=== PATIENT | male | born 1995 | race Caucasian/White ===

== ENCOUNTER 2016-06-09 19:52 | Emergency (ER) | payer BC, OTHER ==
[~2016-06-09] VITALS: Ht 170.2 cm; Wt 68.1 kg
[~2016-06-09 19:52] MED LIST: OXYC-57 PO; TAMS0.4C38 PO
[2016-06-09 20:03] VITALS: TEMP 36.9; Ht 170.2 cm; Wt 68.1 kg
[2016-06-09] MEDS ORDERED: KETOROLAC TROMETHAMINE 30 MG/ML VIAL IV STA (20:31)
[2016-06-09] MEDS ORDERED: CLINDAMYCIN 600 MG/54 ML D5W IV ONE (20:45)
[2016-06-09 21:19] LABS: BASO % 0.2 %; BASO ABS # 0.02 K/uL (0-0.2); COMPLETE YES; HEMATOCRIT 40.5 % (42-52); IG% 0.2 %; LYMPH % 22.7 %; LYMPH ABS # 2.49 K/uL (1.2-3.4); MEAN CELL VOLUME 89.4 fL (80-100); MEAN CORPUSCULAR HGB CONC 35.8 g/dl (32-36); MEAN PLATELET VOLUME 10.3 fL (7.4-10.4); MONO % 10.2 %; NEUT % 65.7 %; PLATELET COUNT 204 K/uL (130-400); RED BLOOD COUNT 4.53 M/uL (4.7-6.1); WHITE BLOOD COUNT 10.95 K/uL (4.8-10.8)
[2016-06-09] MEDS ORDERED: CLIN300C2 PO (21:34)
[2016-06-09] MEDS ORDERED: HYDR-5688 PO (21:34)
--- NOTE | 2016-06-09 21:35 | EMERGENCY ROOM VISIT NOTE ---
History First contact with patient: 20:21 Chief Complaint: DENTAL PAIN Stated Complaint: TOOTHPAIN,HEADACHE History of Present Illness The patient is a 20 year old male who presents to the Emergency Room with complaints of dental pain for the last 2 days. The patient states that he had a root canal done 6 months ago in the left lower molar and 2 days ago the filling fell out. He immediately started noticed some pain and swelling in the area. He did not try and contact his dentist until this evening about his current symptoms. He states he hasn't appointment next week. The patient denies any fever or neck pain. Review of Systems 10 system review was performed and was negative unless stated otherwise history of present illness. Past Medical/Surgical History Medical Problems: (1) History of renal calculi Surgical Problems: (1) History of arthroscopy of left knee (2) History of tympanostomy (3) Status post tonsillectomy and adenoidectomy Family History FHx: heart disease Hypertension Kidney stones Social History Smoking Status: Never Smoker Alcohol Use: none Drug Use: none Marital Status: single Occupation Status: employed, student Current/Historical Medications No Active Prescriptions or Reported Meds Allergies Coded Allergies: No Known Allergies (Unverified , 04/24/14) Physical Exam Vital Signs Date Time Temp Pulse Resp B/P Pulse Ox O2 Delivery O2 Flow Rate FiO2 06/09/16 20:03 36.9 70 18 124/73 99 Room Air Physical Exam GENERAL: Well-developed well-nourished 20-year-old white male appears in no acute distress. MENTAL Status: Alert and oriented 3 MOUTH: Left lower molar with a filling missing. There is also surrounding edema in the gingiva but no central fluctuance is noted. FACE: There is a small palpable lump on the left mandible at the region of the left lower molar. No erythema is noted. NECK: Supple, no lymphadenopathy noted. No carotid bruits noted. LUNGS: Clear auscultation without wheezes rales or rhonchi. CARDIAC: Regular rate and rhythm without murmur. Pulses is full and equal throughout. Medical Decision & Procedures Laboratory Results 06/09/16 21:00 Red Blood Count 4.53, Mean Corpuscular Volume 89.4, Mean Corpuscular Hemoglobin 32.0, Mean Corpuscular Hemoglobin Concent 35.8, Mean Platelet Volume 10.3, Neutrophils (%) (Auto) 65.7, Lymphocytes (%) (Auto) 22.7, Monocytes (%) (Auto) 10.2, Eosinophils (%) (Auto) 1.0, Basophils (%) (Auto) 0.2, Neutrophils # (Auto ) 7.19, Lymphocytes # (Auto) 2.49, Monocytes # (Auto) 1.12, Eosinophils # (Auto ) 0.11, Basophils # (Auto) 0.02 Test 06/09/16 21:00 White Blood Count 10.95 K/uL (4.8-10.8) Red Blood Count 4.53 M/uL (4.7-6.1) Hemoglobin 14.5 g/dL (14.0-18.0) Hematocrit 40.5 % (42-52) Mean Corpuscular Volume 89.4 fL (80-100) Mean Corpuscular Hemoglobin 32.0 pg (25-34) Mean Corpuscular Hemoglobin Concent 35.8 g/dl (32-36) Platelet Count 204 K/uL (130-400) Mean Platelet Volume 10.3 fL (7.4-10.4) Neutrophils (%) (Auto) 65.7 % Lymphocytes (%) (Auto) 22.7 % Monocytes (%) (Auto) 10.2 % Eosinophils (%) (Auto) 1.0 % Basophils (%) (Auto) 0.2 % Neutrophils # (Auto) 7.19 K/uL (1.4-6.5) Lymphocytes # (Auto) 2.49 K/uL (1.2-3.4) Monocytes # (Auto) 1.12 K/uL (0.11-0.59) Eosinophils # (Auto) 0.11 K/uL (0-0.5) Basophils # (Auto) 0.02 K/uL (0-0.2) RDW Standard Deviation 43.8 fL (36.4-46.3) RDW Coefficient of Variation 13.4 % (11.5-14.5) Immature Granulocyte % (Auto) 0.2 % Immature Granulocyte # (Auto) 0.02 K/uL (0.00-0.02) Medications Administered Medications (Trade) Dose Ordered Sig/Alvaro Route Start Time Stop Time Status Last Admin Dose Admin Clindamycin Phosphate (Cleocin 600mg/ 54ml D5W) 600 mg ONE ONCE IV 06/09/16 20:45 4/3/17 20:46 DC 06/09/16 21:09 600 MG Ketorolac Tromethamine (Toradol Inj) 30 mg NOW STAT IV 06/09/16 20:31 06/09/16 20:34 DC 06/09/16 21:10 30 MG ED Course The patient was evaluated. IV access was obtained. CBC and differential renal profile was ordered. The patient was given clindamycin 600 mg IV and Toradol 30 mg IV. The patient's labs are reviewed. The patient's white count was only slightly elevated at a little over 10,000. The patient was reevaluated and he stated his pain was a 3 out of 10. The patient was given a [place] home pack to take as needed this evening. The patient was discharged home in stable condition. Medical Decision Differential diagnosis include cellulitis, periapical abscess, gingivitis, dentalgia Impression Primary Impression: Periapical abscess Departure Information Dispostion Home / Self-Care Condition GOOD Prescriptions Clindamycin Hcl (CLEOCIN) 300 Mg Cap 1 CAP PO TID for 10 Days, #30 CAP Prov: Caroline Martinez PA-C 06/09/16 Hydrocodone/Acetaminophen 5MG/325MG ([place] 5MG/325MG) Tab 1-2 TABLET PO Q6 Y for Pain, #20 TAB For Initial Treatment Prov: Caroline Martinez PA-C 06/09/16 Forms HOME CARE DOCUMENTATION FORM, IMPORTANT VISIT INFORMATION Patient Instructions [facility] Additional Instructions Avoid chewing on the left side in her mouth. Ibuprofen 600 mg every 6 hours with food for pain. Take [place] as needed for more severe pain. Do not drive while taking the [place]. Take clindamycin as prescribed. Call your dentist tomorrow for a follow-up appointment as soon as possible.
[2016-06-09 21:45] LABS: BLOOD UREA NITROGEN 16 mg/dl (7-18); BUN/CREATININE RATIO 21.3 (10-20); CALCIUM 8.8 mg/dl (8.5-10.1); CARBON DIOXIDE 29 mmol/L (21-32); CHLORIDE 104 mmol/L (98-107); CREATININE 0.75 mg/dl (0.60-1.40); GLUCOSE 89 mg/dl (70-99); POTASSIUM 3.7 mmol/L (3.5-5.1); SODIUM 140 mmol/L (136-145)
[2016-06-09] MEDS ORDERED: NORCO 5/325MG HOME PACK PO ONE (21:45)
[2016-06-09 22:06] VITALS: BP 119/71; PULSE 65; O2SAT 100
--- NOTE | 2016-06-10 11:40 | Pharmacy Progress Note ---
ED Pharmacist Culture FollowUp Date of Service: Jun 10, 2016. Patient called - [facility] for clindamycin prescribed was cost-prohibitive ($ 111 at [facility]). Changed to Augmentin 875 mg po BID x10 days per Dr. Ramos and called in to [facility] per patient's request ($55). Called [phone] and cancelled prescription for clindamycin.
== END 2016-06-09 22:07 | disposition home or self-care (01) ==
LOC: C.EDB 19:53 → C.EDD 22:07
DX: K04.7 Periapical abscess without sinus (principal)